=== PATIENT | male | born 1935 | race African-American/Black ===

== ENCOUNTER 2017-03-16 12:30 | Inpatient (IN) | payer MEDICARE, BC ==
[~2017-03-16] VITALS: Ht 190.5 cm; Wt 88.0 kg
[~2017-03-16 12:30] MED LIST: AMLODIPINE; ATEN-42 PO; LISI10TA5 PO
[2017-03-16] MEDS ORDERED: PIPERACILLIN SODIUM/TAZOBACTAM 4.5 G in DEXT 5% WATER 100 ML IV ONE (14:15)
[2017-03-16] MEDS ORDERED: SODIUM CHLORIDE 0.9% 1,000 ML IV ONE (14:15)
[2017-03-16] MEDS ORDERED: VANCOMYCIN 1 G PREMIX 200 ML IV ONE (14:15)
[2017-03-16 15:18] LABS: BASOPHILS % 1.2 % (0.0-2.0); CHLORIDE 100 mEq/L (98-107); EOSINOPHILS % 5.1 % (0.0-5.0); HEMATOCRIT. 34.4 % (42.0-52.0); HEMOGLOBIN. 11.2 g/dL (14.0-18.0); INDEX HEMOLYSI 2 (1-3); INDEX ICTERIC 1 (1-4); INDEX LIPEMIC 1 (1-3); MEAN CORPUSCULAR HEMOGLOBIN 30.8 pg (28.0-32.0); MEAN CORPUSCULAR HGB CONC 32.6 g/dL (31.0-37.0); MEAN CORPUSCULAR VOLUME 94.6 fL (80.0-94.0); MEAN PLATELET VOLUME 8.1 fl (7.4-10.4); MONOCYTES % 7.3 % (2.0-8.0); NEUTROPHILS % 59.4 % (40.0-76.0); PLATELET 161 x1000/uL (130-400); RED BLOOD CELL COUNT 3.63 mill/uL (4.7-6.1); RED CELL DISTRIBUTION WIDTH 16.8 % (11.6-14.6); WHITE BLOOD COUNT 5.3 x1000/uL (4.5-11.0)
[2017-03-16 15:19] LABS: PROTHROMBIN TIME 10.5 sec
[2017-03-16 15:23] LABS: ALBUMIN 3.2 g/dL (3.4-5.0); ANION GAP 12; CALCIUM 8.1 mg/dL (8.5-10.1); CARBON DIOXIDE 30 mEq/L (21-32); UREA NITROGEN BLOOD 43 mg/dL (7-21)
[2017-03-16 15:27] LABS: ALANINE AMINOTRANSFERASE 18 IU/L (13-61); eGFR 9 mL/min (>60)
[2017-03-16 15:32] LABS: TROPONIN I < 0.02 ng/mL (0.00-0.04)
[2017-03-16 20:00] VITALS: BP 137/79
[2017-03-16 21:45] VITALS: BP 137/79
[2017-03-16] MEDS ORDERED: FOLI-43 PO ×2 (22:46→22:51)
[2017-03-16] MEDS ORDERED: VITA1CAP PO (22:46)
[2017-03-16] MEDS ORDERED: CALC667T5 PO (22:46)
[2017-03-16] MEDS ORDERED: LATA2.5D2 EACHEYE (22:46)
[2017-03-16] MEDS ORDERED: PROT40 PO (22:46)
[2017-03-16] MEDS ORDERED: LISI-604 PO (22:46)
[2017-03-16] MEDS ORDERED: METO-293 PO (22:46)
[2017-03-16] MEDS ORDERED: ATOR20TA65 PO (22:46)
[2017-03-17] VITALS: BP 128/72
[2017-03-17] MEDS ORDERED: NA PHOS,M-B/NA PHOS,DI-BA ENEMA 118ML PR PRN (00:15)
[2017-03-17] MEDS ORDERED: ACETAMINOPHEN 325MG TABLET PO PRN (00:15)
[2017-03-17] MEDS ORDERED: HYDROCODONE/ACETAMINOPHEN 5/325MG TABLET PO PRN (00:15)
[2017-03-17] MEDS ORDERED: HYDROMORPHONE HCL/PF 2MG/ML CPJ IV PRN (00:15)
[2017-03-17] MEDS ORDERED: DOCUSATE SODIUM 100MG CAPSULE PO PRN (00:15)
[2017-03-17] MEDS ORDERED: MAGNESIUM/ALUMINUM HYDROXIDE/SIMETHICONE 30ML UDC PO PRN (00:15)
[2017-03-17] MEDS ORDERED: LORAZEPAM 2MG/ML CPJ IV PRN (00:15)
[2017-03-17] MEDS ORDERED: GUAIFENESIN 200MG/10ML SUGAR FREE UDC PO PRN (00:15)
[2017-03-17] MEDS ORDERED: ACETAMINOPHEN 650MG/20.3ML UDC GT PRN (00:15)
[2017-03-17] MEDS ORDERED: CLONIDINE 0.1MG TABLET PO PRN (00:15)
[2017-03-17] MEDS ORDERED: ACETAMINOPHEN 650MG SUPP PR PRN (00:15)
[2017-03-17] MEDS ORDERED: IPRATROPIUM/ALBUTEROL 0.5-3(2.5)MG/3ML NEB INH PRN (00:15)
[2017-03-17] MEDS ORDERED: DIPHENHYDRAMINE 50MG/ML VIAL IV PRN (00:15)
[2017-03-17 01:38] LABS: CLARITY URINE CLEAR (CLEAR); COLOR URINE YELLOW (YELLOW); GLUCOSE URINE NEGATIVE (NEGATIVE); KETONES URINE TRACE (NEGATIVE); LEUKOCYTE ESTERASE URINE 1+ (NEGATIVE); NITRITE URINE NEGATIVE (NEGATIVE); OCCULT BLOOD URINE NEGATIVE (NEGATIVE); PROTEIN URINE 2+ (NEGATIVE); SPECIFIC GRAVITY URINE 1.015 (1.005-1.030); UROBILINOGEN URINE 0.2 E.U./dL (0.2-1.0)
[2017-03-17 01:51] LABS: *AMPHETAMINES SCREEN URINE NEGATIVE (NEGATIVE); *BARBITURATES SCREEN URINE NEGATIVE (NEGATIVE); *BENZODIAZEPINES SCREEN URINE NEGATIVE (NEGATIVE); *COCAINE SCREEN URINE NEGATIVE (NEGATIVE); CANNABINOID URINE SCREEN NEGATIVE (NEGATIVE); ECSTASY MDMA SCREEN URINE NEGATIVE (NEGATIVE); METHADONE URINE SCREEN NEGATIVE (NEGATIVE); OPIATES URINE SCREEN NEGATIVE (NEGATIVE); PHENCYCLIDINE URINE SCREEN NEGATIVE (NEGATIVE)
[2017-03-17] MEDS ORDERED: PIPERACILLIN/TAZ 2.25G PREMIX 50 ML IV SCH ×2 (02:00→05:26)
[2017-03-17 02:03] LABS: SQUAMOUS EPITHELIAL CELL URINE FEW /lpf (RARE/1+)
[2017-03-17 02:05] LABS: RBC URINE 0-2 /hpf (0-2); WBC URINE 0-2 /hpf (0-2)
[2017-03-17 02:06] LABS: BACTERIA URINE TRACE
[2017-03-17 04:00] VITALS: BP 110/64
[2017-03-17] MEDS: SODIUM CHLORIDE 0.9% INJ 3ML FLUSH IVF SCH ×3 (05:26→21:37)
[2017-03-17] MEDS: PIPERACILLIN/TAZ 2.25G PREMIX 50 ML IV SCH ×2 (09:04→17:54)
[2017-03-17] MEDS: ENOXAPARIN 30MG/0.3ML SYR SUBCUT SCH (09:04)
[2017-03-17] MEDS ORDERED: VANCOMYCIN 500 MG PREMIX 100 ML IV NR (13:00)
[2017-03-17 20:00] VITALS: BP 126/62
[2017-03-18] VITALS: BP 113/61
[2017-03-18] MEDS: PIPERACILLIN/TAZ 2.25G PREMIX 50 ML IV SCH ×3 (02:55→17:08)
[2017-03-18 04:00] VITALS: BP 106/66
[2017-03-18] MEDS: SODIUM CHLORIDE 0.9% INJ 3ML FLUSH IVF SCH ×3 (06:00→21:22)
[2017-03-18 06:07] LABS: BASOPHILS % 0.9 % (0.0-2.0); EOSINOPHILS % 7.2 % (0.0-5.0); HEMATOCRIT. 34.6 % (42.0-52.0); HEMOGLOBIN. 11.1 g/dL (14.0-18.0); LYMPHOCYTES % 26.1 % (20.0-50.0); MEAN CORPUSCULAR HEMOGLOBIN 30.4 pg (28.0-32.0); MEAN CORPUSCULAR HGB CONC 31.9 g/dL (31.0-37.0); MEAN CORPUSCULAR VOLUME 95.3 fL (80.0-94.0); MEAN PLATELET VOLUME 8.1 fl (7.4-10.4); MONOCYTES % 7.3 % (2.0-8.0); NEUTROPHILS % 58.5 % (40.0-76.0); PLATELET 133 x1000/uL (130-400); RED BLOOD CELL COUNT 3.63 mill/uL (4.7-6.1); RED CELL DISTRIBUTION WIDTH 16.7 % (11.6-14.6)
[2017-03-18 06:47] LABS: CHLORIDE 109 mEq/L (98-107); INDEX HEMOLYSI 1 (1-3); INDEX ICTERIC 1 (1-4); INDEX LIPEMIC 1 (1-3)
[2017-03-18 06:52] LABS: ALANINE AMINOTRANSFERASE 17 IU/L (13-61); ALBUMIN 2.9 g/dL (3.4-5.0); ANION GAP 12; CALCIUM 7.7 mg/dL (8.5-10.1); CARBON DIOXIDE 25 mEq/L (21-32); HDL CHOLESTEROL 42 mg/dL (40-59); LDL CHOLESTEROL 81 mg/dL (5-100); TRIGLYCERIDE 98 mg/dL (0-150); UREA NITROGEN BLOOD 26 mg/dL (7-21); eGFR 10 mL/min (>60)
[2017-03-18] MEDS: FOLIC ACID/VITAMIN B COMP W-C TABLET PO SCH (08:45)
[2017-03-18] MEDS: ENOXAPARIN 30MG/0.3ML SYR SUBCUT SCH (08:46)
[2017-03-18 10:40] LABS: PHOSPHORUS 2.9 mg/dL (2.5-4.9)
[2017-03-18 12:00] VITALS: BP 119/76
[2017-03-18 16:00] VITALS: BP 140/66
[2017-03-18 20:00] VITALS: BP 141/63
[2017-03-18] MEDS: ASCORBIC ACID 250 MG TABLET PO SCH (21:22)
[2017-03-19] VITALS: BP 116/64
[2017-03-19 04:00] VITALS: BP 148/75
[2017-03-19] MEDS: SODIUM CHLORIDE 0.9% INJ 3ML FLUSH IVF SCH (04:53)
[2017-03-19] MEDS ORDERED: CEPH-569 PO (07:40)
[2017-03-19 08:00] VITALS: BP 140/65
[2017-03-19] MEDS: ENOXAPARIN 30MG/0.3ML SYR SUBCUT SCH (08:06)
[2017-03-19] MEDS: ASCORBIC ACID 250 MG TABLET PO SCH (08:07)
[2017-03-19] MEDS: FOLIC ACID/VITAMIN B COMP W-C TABLET PO SCH (08:07)
[2017-03-19] MEDS ORDERED: ZINC SULFATE 220 MG ( 50 ) CAPSULE PO SCH (09:00)
[2017-03-19 09:24] VITALS: BP 140/65
== END 2017-03-19 10:10 | disposition home health service (06) | DRG 595 ==
LOC: ER 13:58 → 7WST 16:06
PROVIDERS: ADMIT Family Medicine; ATTEND Family Medicine
PROC: 5A1D00Z (ICD-10-PCS; principal; 2017-03-17)
DX: C43.72 Malignant melanoma of left lower limb, including hip (principal); N18.6 End stage renal disease; C79.89 Secondary malignant neoplasm of other specified sites; L03.116 Cellulitis of left lower limb; E44.0 Moderate protein-calorie malnutrition; I12.0 Hypertensive chronic kidney disease with stage 5 chronic kidney disease or end stage renal disease; N25.81 Secondary hyperparathyroidism of renal origin; S80.819A Abrasion, unspecified lower leg, initial encounter; R00.1 Bradycardia, unspecified; L08.89 Other specified local infections of the skin and subcutaneous tissue; E78.5 Hyperlipidemia, unspecified; H40.9 Unspecified glaucoma; E83.39 Other disorders of phosphorus metabolism; D63.8 Anemia in other chronic diseases classified elsewhere; Z88.1 Allergy status to other antibiotic agents; Z79.899 Other long term (current) drug therapy; Z82.3 Family history of stroke; Z82.49 Family history of ischemic heart disease and other diseases of the circulatory system; Z68.24 Body mass index [BMI] 24.0-24.9, adult; Z99.2 Dependence on renal dialysis; Z83.3 Family history of diabetes mellitus; Z85.048 Personal history of other malignant neoplasm of rectum, rectosigmoid junction, and anus; Z87.891 Personal history of nicotine dependence
CPT/HCPCS: 36415; 71010; 73590; 80053; 80061; 80202; 80305; 81001; 83605; 84100; 84484; 85025; 85610; 87040; 87070; 87086; 87205; 93005; 96365; 96366; 96367; 99285; J1650; J2543; J3370; J7030; J7040; J7060

== ENCOUNTER 2017-10-16 12:41 | Emergency (ER) | payer MEDICARE, BC ==
[~2017-10-16] VITALS: Ht 190.5 cm; Wt 88.0 kg
[~2017-10-16 12:41] MED LIST changes: -AMLODIPINE; +ATOR20TA65 PO; +CALC667T5 PO; +CEPH-569 PO; +FOLI-43 PO; +LATA2.5D2 EACHEYE; +LISI-604 PO; -LISI10TA5 PO; +METO-293 PO; +PROT40 PO; +VITA1CAP PO
[2017-10-16 13:26] VITALS: BP 128/83
[2017-10-16] MEDS ORDERED: ACETAMINOPHEN 325MG TABLET PO ONE (17:00)
== END 2017-10-16 18:00 | disposition home or self-care (01) ==
LOC: ER 13:52
DX: M25.562 Pain in left knee (principal); M25.512 Pain in left shoulder; I12.0 Hypertensive chronic kidney disease with stage 5 chronic kidney disease or end stage renal disease; N18.6 End stage renal disease; Z99.2 Dependence on renal dialysis; Z85.9 Personal history of malignant neoplasm, unspecified; Z88.3 Allergy status to other anti-infective agents; V43.52XA Car driver injured in collision with other type car in traffic accident, initial encounter; Y93.89 Activity, other specified; Y92.488 Other paved roadways as the place of occurrence of the external cause
CPT/HCPCS: 73030; 73562; 99284